=== PATIENT | female | born 2000 | race Caucasian/White ===

== ENCOUNTER 2020-04-16 13:22 | Emergency (ER) | payer OTHER ==
[2020-04-16] MEDS ORDERED: Diphtheria,Pertussis(Acell),Tetanus Vaccine 0.5 ML Syringe IM ONE (13:41)
--- NOTE | 2020-04-16 14:02 | EDM.PDOC ---
ED HPI GENERAL MEDICAL PROBLEM - General Chief Complaint: Laceration Stated Complaint: R THUMB CUT Time Seen by Provider: 04/16/20 13:30 Source of Information: Reports: Patient History Limitations: Reports: No Limitations - History of Present Illness INITIAL COMMENTS - FREE TEXT/NARRATIVE: She comes into the emergency department with complaints of a laceration to her right thumb. Patient states that she was cutting potatoes and the knife neno slipped and ended up cutting the edge of her thumb. She states that she noticed bleeding immediately as well as skin and nail piece hanging. She was able to control the bleeding prior to arrival with manual pressure. Patient states she has some's light stinging sensation however concerns with CMS or range of motion. She states that she has all feelings in the finger. She was concerned regarding the nail and wanted to have it further evaluated. Patient denies any other concerns. She states that she has been relatively healthy. Patient denies any chest pain, shortness of breath, dizziness, lightheadedness, fall, and tetanus is up-to-date approximately 10 years ago. Onset: Sudden Location: Reports: Upper Extremity, Right Quality: Reports: Throbbing Severity: Mild Improves with: Reports: None Worsens with: Reports: None Right Finger-Thumb Pain Score (Numeric/FACES): 2 - Related Data Allergies Allergy/AdvReac Type Severity Reaction Status Date / Time No Known Allergies Allergy Verified 01/18/14 23:46 Home Meds: Home Meds Albuterol [Proair HFA] 01/18/14 [History] Sertraline HCl 50 mg PO DAILY 01/18/14 [History] Past Medical History - Past Health History Medical/Surgical History: Denies Medical/Surgical History Social & Family History - Tobacco Use Smoking Status *Q: Never Smoker - Living Situation & Occupation Living situation: Reports: Single Occupation: Student ED ROS GENERAL - Review of Systems Review Of Systems: Comprehensive ROS is negative, except as noted in HPI. Constitutional: Reports: No Symptoms HEENT: Reports: No Symptoms Respiratory: Reports: No Symptoms Cardiovascular: Reports: No Symptoms Endocrine: Reports: No Symptoms GI/Abdominal: Reports: No Symptoms : Reports: No Symptoms Musculoskeletal: Reports: No Symptoms Neurological: Reports: No Symptoms Psychiatric: Reports: No Symptoms Hematologic/Lymphatic: Reports: No Symptoms Immunologic: Reports: No Symptoms ED EXAM, SKIN/RASH Exam: See Below Exam Limited By: No Limitations General Appearance: Alert, WD/WN, No Apparent Distress Head: Atraumatic, Normocephalic Neurological: Alert, Oriented, Normal Cognition, Normal Gait Psychiatric: Normal Affect, Normal Mood Skin: Warm, Dry, Intact Location, Skin: Upper Extremity, Right Characteristics: Other (superficial avulsion of tip with nail edge removed. mild bleeding. no swelling, warmth, or redness noted ) Course - Vital Signs Last Recorded V/S: Last Vital Signs Temp 36.9 C 04/16/20 13:41 Pulse 88 04/16/20 13:41 Resp 16 04/16/20 13:41 BP 128/82 04/16/20 13:41 Pulse Ox 99 04/16/20 13:41 - Orders/Labs/Meds Orders: Active Orders 24 hr Category Date Time Status Vaccines to be Administered [RC] PER UNIT ROUTINE Care 04/16/20 13:41 Active Meds: Medications Discontinued Medications Generic Name Dose Route Start Last Admin Trade Name Freq PRN Reason Stop Dose Admin Diphtheria/Tetanus/Acell Pertussis 0.5 ml 04/16/20 13:41 04/16/20 13:53 Adacel IM 04/16/20 13:42 0.5 ml .ONCE ONE Administration Lidocaine HCl 5 ml 04/16/20 13:37 04/16/20 13:53 Xylocaine-Mpf 1% INJECT 04/16/20 13:38 5 ml ONETIME ONE Administration Departure - Departure Time of Disposition: 14:00 Disposition: Home, Self-Care 01 Condition: Good Clinical Impression: Avulsion, finger tip Qualifiers: Encounter type: initial encounter Qualified Code(s): S61.209A - Unspecified open wound of unspecified finger without damage to nail, initial encounter - Discharge Information *PRESCRIPTION DRUG MONITORING PROGRAM REVIEWED*: Not Applicable *COPY OF PRESCRIPTION DRUG MONITORING REPORT IN PATIENT CAMMY: Not Applicable Instructions: Fingernail or Toenail Removal, Adult, Care After Additional Instructions: 1. Rest 2. Keep the area clean and dry 3. Can use tylenol and ibuprofen as needed for pain and discomfort 4. Diet as tolerated 5. Activity as tolerated 6. Elevated the injured area above the level of the heart to decrease swelling and discomfort if applicable 7. Can use ice 3-4 times a day at 20-minute intervals to help with any swelling and discomfort 8. Follow-up with your primary care provider symptoms continue or to progress 9. Discharge information has been provided regarding your injury and wound care has been provided 10. Avoid an public pools or hot tubes until wound is healed. Sepsis Event Note (ED) - Evaluation Sepsis Screening Result: No Definite Risk - Focused Exam Vital Signs: Vital Signs Temp Pulse Resp BP Pulse Ox 04/16/20 13:41 36.9 C 88 16 128/82 99 - My Orders Last 24 Hours: My Active Orders 04/16/20 13:41 Vaccines to be Administered [RC] PER UNIT ROUTINE - Assessment/Plan Last 24 Hours: My Active Orders 04/16/20 13:41 Vaccines to be Administered [RC] PER UNIT ROUTINE Assessment:: 1. superficial finger tip avulsion Plan: 1. wound area cleanses. Removal of skin flap and nail tip. bleeding mild, no complications dressing applied 2. Ice Applied to the affected limb 3. Medication offered to the patient- pt denied needing any medications 4. Education regarding splinting, activity, [id number] medications, and follow-up care provided. 5. All questions and concerns addressed with the patient prior to discharge
== END 2020-04-16 14:05 | disposition home or self-care (01) ==
LOC: VM.ED 13:22
DX: S61.101A Unspecified open wound of right thumb with damage to nail, initial encounter (principal); Z23 Encounter for immunization; Z79.899 Other long term (current) drug therapy; W26.0XXA Contact with knife, initial encounter
CPT/HCPCS: 90471; 90715; 99282; 99283-GF; J2001

== ENCOUNTER 2024-02-24 18:22 | Emergency (ER) | payer OTHER ==
[2024-02-24] MEDS ORDERED: Sodium Chloride 0.9% 10 ML Syringe FLUSH PRN (18:50)
[2024-02-24 18:58] LABS: BASOPHILS PERCENT AUTO 0.5 % (0.2-1.2); EOSINOPHILS ABSOLUTE AUTO 0.1 x10^3/uL (0.0-0.5); EOSINOPHILS PERCENT AUTO 1.1 % (0.0-4.0); HEMATOCRIT 44.1 % (33.0-47.0); HEMOGLOBIN 15.7 g/dL (12.0-16.0); LYMPHOCYTES ABSOLUTE AUTO 1.6 x10^3/uL (1.0-4.8); LYMPHOCYTES PERCENT AUTO 18.3 % (25.0-50.0); MEAN CORPUSCULAR HEMOGLOBIN 28.9 pg (26.0-32.0); MEAN CORPUSCULAR HGB CONC 35.6 g/dL (32.0-36.0); MEAN CORPUSCULAR VOLUME 81.1 fL (78.0-93.0); MONOCYTES ABSOLUTE AUTO 0.5 x10^3/uL (0.0-0.8); MONOCYTES PERCENT AUTO 5.9 % (2.0-11.0); NEUTROPHILS ABSOLUTE AUTO 6.3 x10^3/uL (1.8-7.7); NEUTROPHILS PERCENT AUTO 74.2 % (50.0-80.0); PLATELET COUNT,PLT 293 x10^3/uL (130-400); RED BLOOD CELL COUNT 5.44 x10^6/uL (4.00-5.50); WHITE BLOOD CELL COUNT,WBC 8.5 x10^3/uL (4.0-10.0)
[2024-02-24 19:07] LABS: A/G RATIO 1.25; ALANINE AMINOTRANSFERASE,ALT 41 U/L (14-59); ALBUMIN 4.5 g/dL (3.4-5.0); ALKALINE PHOSPHATASE 74 U/L (46-116); AMYLASE 41 U/L (25-115); ASPARTATE AMNIOTRANSFERASE,AST 30 U/L (15-37); BILIRUBIN TOTAL 0.5 mg/dL (0.2-1.0); BLOOD UREA NITROGEN,BUN 14 mg/dL (7-18); CALCIUM 9.6 mg/dL (8.5-10.1); CARBON DIOXIDE,CO2 27 mmol/L (21-32); CHLORIDE,CL 102 mmol/L (98-107); GLUCOSE RANDOM 139 mg/dL (70-99); LIPASE 28 U/L (19-71); PROTEIN TOTAL,TP 8.1 g/dL (6.4-8.2); SODIUM,NA 143 mmol/L (136-145)
[2024-02-24 19:10] LABS: C-REACTIVE PROTEIN < 0.50 mg/dL (<=0.50); ESTIMATED GFR 80 mL/min (>=60)
[2024-02-24 19:59] LABS: BILIRUBIN,URINE SMALL (NEGATIVE); COLOR,URINE YELLOW (YELLOW); GLUCOSE,URINE NEGATIVE (NEGATIVE); KETONES,URINE 40 mg/dL (NEGATIVE); LEUKOCYTE ESTERASE,URINE TRACE (NEGATIVE); NITRITE,URINE NEGATIVE (NEGATIVE); OCCULT BLOOD,URINE NEGATIVE (NEGATIVE); PROTEIN,URINE TRACE mg/dL (NEGATIVE); UROBILINOGEN,URINE 0.2 EU/dL (0.2)
[2024-02-24 20:02] LABS: APPEARANCE,URINE SLIGHTLY CLOUDY (CLEAR)
[2024-02-24 20:06] LABS: BACTERIA,URINE OCCASIONAL /HPF (NOT SEEN); MUCUS,URINE OCCASIONAL /LPF (NOT SEEN); RBC,URINE 0-5 /HPF (NOT SEEN); SQUAMOUS EPITHELIAL CELLS,UR FEW /HPF (NOT SEEN)
[2024-02-24] MEDS: Take Home: Ondansetron 4 MG Tab.DIS, 5 Tab Pack PO ONE (21:36)
[2024-02-24] MEDS: Take Home: Acetaminophen/HYDROcodone 325-5 MG, 5 Tab Pack PO ONE (21:36)
[2024-02-24] MEDS: Lactated Ringers 1,000 ML IV ONE (21:37)
[2024-02-24] MEDS: HYDROmorphone 0.5 MG/0.5 ML Syringe IVPUSH ONE ×2 (21:37)
[2024-02-24] MEDS: Ketorolac 15 MG/ML SDV IVPUSH ONE (21:37)
[2024-02-24] MEDS: Ondansetron 4 MG/2 ML SDV IVPUSH ONE (21:38)
== END 2024-02-24 20:50 | disposition home or self-care (01) ==
LOC: VM.ED 18:22
DX: K82.9 Disease of gallbladder, unspecified (principal); Z79.51 Long term (current) use of inhaled steroids
CPT/HCPCS: 80053; 81001; 81025; 82150; 83690; 85025; 86140; 87086; 96361; 96374; 96375; 96376; 99284; A9270; J1170; J1885; J2405; J7120; Q0162